=== PATIENT | female | born 1945 | race Caucasian/White ===

== ENCOUNTER 2021-02-28 10:24 | Day surgery (SDCO) | payer MEDICARE, OTHER ==
[~2021-02-28] VITALS: Ht 152.4 cm; Wt 49.0 kg
[~2021-02-28 10:24] MED LIST: AMBIEN10 MG PO; CEFDINIR300 MG PO; CHILDREN'S ASPI81 MG PO; DUONEB 2.5-0.5M1 AMP NEB; FOLIC ACID1 MG PO; ISOSORBIDE MONO30 MG PO; KETOROLAC TROME10 MG PO; MUCINEX 600MG600 MG PO; PREDNISONE 10MG10 MG PO; PREDNISONE 20MG20 MG PO; SPIRIVA18 MCG INH; SYMBICORT 1601 PUFFS INH; SYMBICORT 80-10.2 GM INH; SYNTHROID75 MCG PO; TOPROL XL 25MG25 MG PO; VENTOLIN (2.5 MG/3 M NEB; ZESTRIL5 MG PO
[2021-02-28 11:00] LABS: BASOPHIL 0.4 % (0-2); HCT 43.2 % (37.0-47.0); HGB 13.7 g/dl (12.5-16.0); LYMPHOCYTE 18.2 % (15-48); MCH 32.5 pg (25.0-31.0); MCHC 31.7 g/dL (32.0-36.0); MCV 102.4 fL (78.0-100.0); MONOCYTE 7.9 % (0-12); MPV 10.8 fL (6.0-9.5); NRBC 0; PLT 192 K/uL (150-400); RBC 4.22 M/uL (4.20-5.40); WBC 11.7 K/uL (4.0-10.5)
[2021-02-28 11:29] LABS: ALBUMIN 3.2 g/dL (3.4-5.0); BILIRUBIN - TOTAL 0.7 mg/dL (0.2-1.0); BUN/CREAT RATIO (CALC) 27.6 RATIO; CREATININE 0.58 mg/dL (0.51-0.95); GLOBULIN (CALCULATION) 3.1 g/dL; POTASSIUM 4.3 mmol/L (3.5-5.1); TOTAL PROTEIN 6.3 g/dL (6.4-8.2)
[2021-02-28 11:44] LABS: CKMB 1.4 ng/mL (0.0-3.6); PRO-BNP 73 pg/mL (<450)
[2021-02-28] MEDS ORDERED: LIPITOR20 MG PO (13:57)
[2021-03-01 06:52] LABS: BASOPHIL 0.1 % (0-2); EOSINOPHIL 0 % (0-7); HCT 40.5 % (37.0-47.0); HGB 13.3 g/dl (12.5-16.0); LYMPHOCYTE 9.4 % (15-48); MCH 33.1 pg (25.0-31.0); MCHC 32.8 g/dL (32.0-36.0); MCV 100.7 fL (78.0-100.0); MONOCYTE 3.8 % (0-12); MPV 10.9 fL (6.0-9.5); NEUTROPHIL 85.4 % (41-80); NRBC 0; PLT 183 K/uL (150-400); RBC 4.02 M/uL (4.20-5.40); RDW 14.4 % (11.5-14.0); WBC 11.4 K/uL (4.0-10.5)
[2021-03-01 07:13] LABS: ALBUMIN 2.9 g/dL (3.4-5.0); BILIRUBIN - TOTAL 0.3 mg/dL (0.2-1.0); BUN/CREAT RATIO (CALC) 41.3 RATIO; CREATININE 0.46 mg/dL (0.51-0.95); GLOBULIN (CALCULATION) 3.4 g/dL; POTASSIUM 4.7 mmol/L (3.5-5.1); TOTAL PROTEIN 6.3 g/dL (6.4-8.2)
[2021-03-01] MEDS ORDERED: ADVAIR 250/5028 PUFF INH (15:30)
== END 2021-03-01 15:45 | disposition home or self-care (01) ==
LOC: FER 10:24 → FMS 12:26
PROVIDERS: Emergency Medicine; ADMIT Family Medicine
DX: J44.1 Chronic obstructive pulmonary disease with (acute) exacerbation (principal); M62.81 Muscle weakness (generalized); R73.9 Hyperglycemia, unspecified; D75.89 Other specified diseases of blood and blood-forming organs; E03.9 Hypothyroidism, unspecified; I10 Essential (primary) hypertension; I25.10 Atherosclerotic heart disease of native coronary artery without angina pectoris; I25.2 Old myocardial infarction; Z20.822 Contact with and (suspected) exposure to COVID-19; Z99.81 Dependence on supplemental oxygen; Z95.818 Presence of other cardiac implants and grafts; Z87.891 Personal history of nicotine dependence; Z88.2 Allergy status to sulfonamides; Z79.82 Long term (current) use of aspirin; Z79.899 Other long term (current) drug therapy
CPT/HCPCS: 36415; 36600; 71046; 80053; 82553; 82607; 82803; 83036; 83880; 84443; 84484; 85025; 85379; 86140; 93005; 94010; 94640; 94664; 94760; 96372; 97162; 97530-GP; G0378; J1650; J2930; U0002